=== PATIENT | male | born 1965 | race American Indian/Alaskan Native ===

== ENCOUNTER 2021-02-19 21:46 | Emergency (ER) | payer SELFPAY ==
[~2021-02-19] VITALS: Ht 180.3 cm; Wt 112.9 kg
[2021-02-19] MEDS ORDERED: Cleocin HCl150 MG PO (22:47)
[2021-02-19] MEDS ORDERED: CLIN300 PO (22:47)
== END 2021-02-19 23:05 | disposition home or self-care (01) ==
LOC: ER 21:46
DX: L03.032 Cellulitis of left toe (principal); E11.9 Type 2 diabetes mellitus without complications; Z87.891 Personal history of nicotine dependence
CPT/HCPCS: 73630; 99283-25; A9270